=== PATIENT | female | born 1980 | race Caucasian/White ===

== ENCOUNTER 2019-10-10 05:27 | Inpatient (IN) ==
[2019-10-10] MEDS ORDERED: Metoclopramide 10 MG/2 ML VIAL IVP PRN ×2 (05:28→12:20)
[2019-10-10] MEDS ORDERED: Naloxone 0.4 MG/ML INJ IVP PRN (05:28)
[2019-10-10] MEDS ORDERED: Famotidine 20 MG/2 ML VIAL IVP PRN (05:28)
[2019-10-10] MEDS ORDERED: Ringers Solution, Lactated 1,000 ML IVC SCH (05:30)
[2019-10-10 06:02] LABS: Basophils # 0.1 K/mcL (0.0-0.2); Basophils % 0.7 %; Eosinophils # 0.1 K/mcL (0.0-0.6); Eosinophils % 0.9 %; Hematocrit 34.9 % (35.3-44.9); Hemoglobin 10.9 g/dL (11.5-15.4); Immature Granulocytes % 0.4 % (0-4); Lymphocytes # 3.2 K/mcL (0.6-4.6); Lymphocytes % 35.3 %; Mean Corpuscular HGB Conc 31.2 g/dL (31.6-35.5); Mean Corpuscular Hemoglobin 24.5 pg (28.0-33.3); Mean Corpuscular Volume 78.6 fL (83.0-100.0); Mean Platelet Volume 10.5 fL (9.4-12.4); Monocytes # 0.4 K/mcL (0.0-1.3); Monocytes % 4.6 %; Neutrophils # 5.3 K/mcL (1.6-8.9); Platelet Count 233 K/mcL (140-400); Red Blood Count 4.44 M/mcL (3.82-4.97); Red Cell Distribution Width 21.3 % (11.5-14.5); Segmented Neutrophils % 58.1 %; White Blood Count 9.2 K/mcL (4.3-11.1)
[2019-10-10 06:17] LABS: Amphetamine Screen,Urine Negative ng/mL (Cutoff=1000); Barbiturate Screen,Urine Negative ng/mL (Cutoff=200); Benzodiazepines Screen,Urine Negative ng/mL (Cutoff=200); Cannabinoid Screen,Urine Negative ng/mL (Cutoff = 50); Cocaine Screen,Urine Negative ng/mL (Cutoff= 300); Opiate Screen,Urine Negative ng/mL (Cutoff=300); Phencyclidine Screen,Urine Negative ng/mL (Cutoff=25)
[2019-10-10] MEDS ORDERED: ceFAZolin 2,000 MG in 0.9 % Sodium Chloride 100 ML IVPB ONE (07:35)
[2019-10-10] MEDS ORDERED: CeFAZolin 2,000 MG/50 ML BAG IVPB ONE (08:00)
[2019-10-10] MEDS ORDERED: *HR* Morphine Sulfate/PF 10 MG/10 ML AMPUL ONE (08:16)
[2019-10-10] MEDS ORDERED: EPHEDrine 50 MG/ML VIAL ONE (08:34)
[2019-10-10] MEDS ORDERED: Dexamethasone 4 MG/ML VIAL ONE (08:35)
[2019-10-10] MEDS ORDERED: Ondansetron 4 MG/2 ML VIAL ONE (08:35)
[2019-10-10] MEDS ORDERED: *HR* Propofol 200 MG/20 ML VIAL IVP ONE (08:51)
[2019-10-10] MEDS ORDERED: *HR* FentaNYL (PF) 100 MCG/2 ML VIAL ONE (09:00)
[2019-10-10] MEDS ORDERED: Ibuprofen 400 MG TABLET PO PRN (09:17)
[2019-10-10] MEDS ORDERED: *HR* OxyCODONE/APAP 5/325 TABLET PO PRN (09:17)
[2019-10-10] MEDS ORDERED: Morphine Sulfate 2 MG/ML SYRINGE IVP PRN (09:17)
[2019-10-10] MEDS ORDERED: Ondansetron 4 MG/2 ML VIAL IVP PRN ×2 (09:17→12:20)
[2019-10-10] MEDS ORDERED: Acetaminophen IV 1,000 MG/100 ML INFUS..BTL IVPB ONE (09:18)
[2019-10-10] MEDS ORDERED: Oxytocin 20 units/ LR 1000 mL 20 UNIT/1,000 ML BAG IVC ONE (10:37)
[2019-10-10] MEDS ORDERED: Rho Immune Globulin 1,500 UNIT SYRINGE IM ONE (12:20)
[2019-10-10] MEDS ORDERED: Ibuprofen 600 MG TABLET PO PRN (12:20)
[2019-10-10] MEDS ORDERED: Sennosides 8.6 MG TABLET PO PRN (12:20)
[2019-10-10] MEDS: *HR* OxyCODONE/APAP 5/325 TABLET PO PRN ×2 (15:00→20:36)
[2019-10-10] MEDS: ceFAZolin 2,000 MG in 0.9 % Sodium Chloride 100 ML IVP SCH (15:42)
[2019-10-10] MEDS: Oxytocin 20 units/ LR 1000 mL 20 UNIT/1,000 ML BAG IVC SCH (15:42)
[2019-10-11] MEDS: Simethicone 80 MG TAB.CHEW PO PRN ×2 (00:05→11:49)
[2019-10-11] MEDS: ceFAZolin 2,000 MG in 0.9 % Sodium Chloride 100 ML IVP SCH ×2 (01:05→08:42)
[2019-10-11] MEDS: *HR* OxyCODONE/APAP 5/325 TABLET PO PRN ×4 (01:48→22:12)
[2019-10-11] MEDS: Oxytocin 20 units/ LR 1000 mL 20 UNIT/1,000 ML BAG IVC SCH (03:34)
[2019-10-11 07:38] LABS: Basophils % 0.3 %; Eosinophils % 0.3 %; Hematocrit 26.7 % (35.3-44.9); Immature Granulocytes % 0.3 % (0-4); Lymphocytes # 2.9 K/mcL (0.6-4.6); Lymphocytes % 23.9 %; Mean Corpuscular HGB Conc 31.5 g/dL (31.6-35.5); Mean Corpuscular Hemoglobin 24.4 pg (28.0-33.3); Mean Corpuscular Volume 77.6 fL (83.0-100.0); Mean Platelet Volume 10.6 fL (9.4-12.4); Monocytes # 0.7 K/mcL (0.0-1.3); Monocytes % 5.6 %; Neutrophils # 8.3 K/mcL (1.6-8.9); Platelet Count 179 K/mcL (140-400); Red Blood Count 3.44 M/mcL (3.82-4.97); Red Cell Distribution Width 20.8 % (11.5-14.5); Segmented Neutrophils % 69.6 %; White Blood Count 11.9 K/mcL (4.3-11.1)
[2019-10-11 07:42] LABS: Hemoglobin 8.4 g/dL (11.5-15.4)
[2019-10-11] MEDS: Prenatal Vit/FA 1 EACH TABLET PO SCH (08:44)
[2019-10-12] MEDS: *HR* OxyCODONE/APAP 5/325 TABLET PO PRN ×2 (02:19→06:33)
[2019-10-12] MEDS: Prenatal Vit/FA 1 EACH TABLET PO SCH (07:40)
[2019-10-12] MEDS: Simethicone 80 MG TAB.CHEW PO PRN (07:42)
[2019-10-12 07:47] VITALS: BP 126/97
== END 2019-10-12 10:46 | disposition home or self-care (01) | DRG 540 ==
LOC: 1NENULAB 05:27 → 1NENUOBS 11:32
PROVIDERS: ADMIT Student in an Organized Health Care Education/Training Program; ATTEND Student in an Organized Health Care Education/Training Program